=== PATIENT | male | born 1990 | race Caucasian/White ===

== ENCOUNTER 2018-07-07 19:19 | Emergency (ER) | payer OTHER, SELFPAY ==
[2018-07-07 19:23] VITALS: BP 125/79; PULSE 66; RESP 14; TEMP 36.5; O2SAT 99; BMI 28.8
[2018-07-07] MEDS: ONDANSETRON 4 MG/2 ML INJ IV (19:39)
[2018-07-07 20:01] LABS: INR 0.9 (0.9-1.3); Prothrombin Time 10.9 SECONDS (10.1-12.7)
[2018-07-07 20:04] LABS: PTT Partial Thromboplastin Tim 33 SECONDS (26.4-36.2)
[2018-07-07 20:05] LABS: Alanine Aminotransferase 64 IU/L (21-72); Albumin 4.8 g/dL (3.5-5.0); Albumin Globulin Ratio 1.5 (1.0-2.8); Alkaline Phosphatase 60 U/L (38-126); Aspartate Aminotransferase 50 IU/L (17-59); BUN Creatinine Ratio 13.3 (6-22); Bilirubin Total 0.7 mg/dL (0.2-1.3); Blood Urea Nitrogen 12 mg/dL (9-20); Calcium 9.7 mg/dL (8.4-10.2); Carbon Dioxide 26 mmol/L (22-32); Chloride 105 mmol/L (98-107); Estimated Glomerular Filt Rate > 60.0 mL/min (>60); Globulin 3.3 g/dL (1.7-4.1); Glucose 88 mg/dL (70-100); HEMOLYSIS 25 (0-50); Lipase 68 U/L (23-300); Potassium 3.9 mmol/L (3.4-5.1); Sodium 140 mmol/L (137-145); Total Protein 8.1 g/dL (6.3-8.2)
[2018-07-07 20:12] LABS: Add Manual Diff / Slide Review NO; Basophils Absolute Auto 0 /uL (0-100); Basophils Percent Auto 0.5 % (0-2); Eosinophils Absolute Auto 600 /uL (0-450); Eosinophils Percent Auto 9.8 % (2-4); Hematocrit 44.8 % (41-53); Hemoglobin 15.6 g/dL (13.5-17.5); Lymphocytes Absolute Auto 2000 /uL (1100-4500); Lymphocytes Percent Auto 30.1 % (25-40); Mean Corpuscular HGB Conc 34.8 % (30-36); Mean Corpuscular Hemoglobin 29.5 PG (26-34); Mean Corpuscular Volume 84.7 fL (80-100); Monocytes Absolute Auto 600 /uL (0-900); Monocytes Percent Auto 8.4 % (3-14); Neutrophils Absolute Auto 3400 /uL (1500-7000); Neutrophils Percent Auto 51.2 % (50-75); Platelet Count 216 X10^3/uL (150-400); Red Blood Cell Count 5.29 X10^6/uL (4.5-5.9); Red Cell Distribution Width 12.8 % (11.6-14.8); White Blood Cell Count 6.6 X10^3/uL (4.5-11.0)
[2018-07-07 20:38] VITALS: BP 121/79; PULSE 54; RESP 14; O2SAT 98
--- NOTE | 2018-07-07 21:10 | ED.ABDPAIN ---
HPI - Abdominal Pain General Chief Complaint: Abdominal Pain Stated Complaint: blood in stool, throwing up blood, light headed Time Seen by Provider: 07/07/18 21:09 Source: patient and old records reviewed Mode of arrival: ambulatory Limitations: no limitations History of Present Illness HPI narrative: patient is a 27-year-old male presenting with vomiting and diarrhea. He said that he has had multiple episodes of is black and bloody stools. He was seen and evaluated at [facility] at 2:00 a.m. this morning where he had blood work. And discharged home. He says that he has had a few episodes since then he now feels lightheaded. He still feels nauseated. Today he has only vomiting up food yesterday he said he vomited up bright red. He has had previous history of this due to NSAIDs. He says it was about 6 months ago he stop taking NSAIDs and has not had any problems. He does admit to drinking alcohol but he says not daily. He has no abdominal pain. He is not taking any omeprazole. Related Data Previous Rx's Medication Instructions Recorded omeprazole 40 mg PO BID #14 cap 07/07/18 ondansetron 4 mg PO Q6-8H PRN #10 tab 07/07/18 Allergies Allergy/AdvReac Type Severity Reaction Status Date / Time No Known Drug Allergies Allergy Verified 07/07/18 19:27 Review of Systems Review of Systems ROS Unobtainable: All systems reviewed & are unremarkable except as noted in HPI and below Constitutional Denies chills, Denies fever(s), Denies lethargy and Denies weakness Cardiovascular Denies chest pain, Denies irregular heart rhythm, Denies lightheadedness, Denies palpitations and Denies orthopnea Gastrointestinal Gastrointestinal: Reports as per HPI Musculoskeletal Denies back pain, Denies muscle weakness, Denies numbness and Denies tingling Integumentary/Breasts Denies pruritus, Denies erythema, Denies rash and Denies wounds Neurologic Denies numbness, Denies tingling and Denies weakness Endocrine Denies palpitations PFSH Medical History GI bleed (Acute) Social History Smoking Status: Never smoker Exam Initial Vital Signs Initial Vital Signs: Vital Signs Temperature 97.7 F 07/07/18 19:23 Pulse Rate 66 07/07/18 19:23 Respiratory Rate 14 07/07/18 19:23 Blood Pressure 125/79 07/07/18 19:23 Pulse Oximetry 99 07/07/18 19:23 GENERAL: Alert well-appearing young male no acute distress A& O x3 HEENT: Head atraumatic,EOMI, pupils reactive, CARDIOVASCULAR: Regular rate and rhythm without murmurs, rubs or gallops. RESPIRATORY: Breath sounds equal bilaterally, no wheezes rales or rhonchi. ABDOMEN: Soft, nontender. Normoactive bowel sounds all 4 quadrants. No guarding or rebound. EXTREMITIES: Normal range of motion, no clubbing or edema. Neurovascularly intact NEUROLOGICAL: Alert and oriented x4.Normal gait and speech. SKIN: Warm, dry, no laceration, no petechiae, no rashes or lesions. Course Orders Ordered: ED Orders 07/07/18 19:32 Complete Blood Count AUTO DIFF Stat Comprehensive Metabolic Panel Stat Lipase Stat Partial Thromboplastin Time Stat Prothrombin Time INR Stat Discontinued Medications Sodium Chloride (Normal Saline 0.9%) 1,000 mls @ 1,000 mls/hr IV BOLUS ONE Stop: 07/07/18 22:23 Last Infusion: 07/07/18 22:35 Dose: 0 mls/hr Admin: 07/07/18 21:29 Dose: 1,000 mls/hr Ondansetron HCl (Zofran) 4 mg IV NOW ONE Stop: 07/07/18 19:29 Last Admin: 07/07/18 19:39 Dose: 4 mg Ondansetron HCl (Zofran) 4 mg IV NOW ONE Stop: 07/07/18 21:25 Last Admin: 07/07/18 21:28 Dose: Not Given Pantoprazole Sodium (Protonix) 40 mg IV NOW ONE Stop: 07/07/18 21:25 Last Admin: 07/07/18 21:29 Dose: 40 mg Vital Signs - 8 hr 07/07/18 19:23 07/07/18 20:38 07/07/18 22:35 Temperature 97.7 F Pulse Rate 66 54 L 66 Respiratory Rate 14 14 16 Blood Pressure 125/79 135/75 Blood Pressure [Right Arm] 121/79 Pulse Oximetry 99 98 98 MDM - Abdominal Pain Lab Data Attestation: I reviewed the patient's lab results. Result diagrams: 07/07/18 19:32 07/07/18 19:32 Lab Results 07/07/18 07/07/18 07/07/18 Range/Units 19:32 19:32 19:32 WBC 6.6 (4.5-11.0) X10^3/uL RBC 5.29 (4.5-5.9) X10^6/uL Hgb 15.6 (13.5-17.5) g/dL Hct 44.8 (41-53) % MCV 84.7 (80-100) fL MCH 29.5 (26-34) PG MCHC 34.8 (30-36) % RDW 12.8 (11.6-14.8) % Plt Count 216 (150-400) X10^3/uL Neut % (Auto) 51.2 (50-75) % Lymph % (Auto) 30.1 (25-40) % [place] % (Auto) 8.4 (3-14) % Eos % (Auto) 9.8 H (2-4) % Baso % (Auto) 0.5 (0-2) % Neut # (Auto) 3400 (6791-6906) /uL Lymph # (Auto) 2000 (0350-1008) /uL [place] # (Auto) 600 (0-900) /uL Eos # (Auto) 600 H (0-450) /uL Baso # (Auto) 0 (0-100) /uL PT 10.9 (10.1-12.7) SECONDS INR 0.9 (0.9-1.3) APTT 33 (26.4-36.2) SECONDS Sodium 140 (137-145) mmol/L Potassium 3.9 (3.4-5.1) mmol/L Chloride 105 (98-107) mmol/L Carbon Dioxide 26 (22-32) mmol/L BUN 12 (9-20) mg/dL Creatinine 0.90 (0.66-1.25) mg/dL Estimated GFR > 60.0 (>60) mL/min BUN/Creatinine Ratio 13.3 (6-22) Glucose 88 (70-100) mg/dL Calcium 9.7 (8.4-10.2) mg/dL Total Bilirubin 0.7 (0.2-1.3) mg/dL AST 50 (17-59) IU/L ALT 64 (21-72) IU/L Alkaline Phosphatase 60 (38-126) U/L Total Protein 8.1 (6.3-8.2) g/dL Albumin 4.8 (3.5-5.0) g/dL Globulin 3.3 (1.7-4.1) g/dL Albumin/Globulin Ratio 1.5 (1.0-2.8) Lipase 68 (23-300) U/L Point of care testing: Urine Dip Bedside Urine Glucose Negative Bedside Urine Bilirubin - Negative Bedside Urine Ketone - Negative Urine Specific [place] 1.010 Bedside Urine Occult Blood - Negative Bedside Urine pH 6.5 Bedside Urine Protein - Negative Bedside Urine Urobilinogen - Negative Bedside Urine Nitrite - Negative Bedside Urine Leukocytes - Negative Esterase MDM Narrative Medical decision making narrative: the patient is hemodynamically stable no significant drop in hemoglobin or hematocrit. In fact his potassium has improved from Visit at [facility] earlier this morning. No active vomiting or diarrhea in the ED. He has not had any fever. no localization of abdominal pain at this time no need for imaging. Possible gastroenteritis, Supportive care only Discharge Plan Departure Patient Disposition: Home Clinical Impression: Acute GI bleeding Discharge Date/Time: 07/07/18 22:36 Interventions: ED Discharge Assessment Last Done: 07/07/18 22:35 Instructions: Gastrointestinal Bleeding Activity Restrictions/Additional Instructions: *You have been diagnosed with Gi Bleed *What to do: at this time blood work is stable. No indication for blood transfusion. you may require an EGD and colonoscopy please discuss this with her primary care provider. AVOID NSAIDS AND ALCOHOL *Continue to take medications as directed Zofran 4 mg every 6-8 hours if needed for nausea or vomiting omeprazole 40 mg twice a day on an empty stomach for 2 weeks *Follow up with your primary care provider in 2-3 days *Return to ER if you should have lightheadedness dizziness, increasing pain, persistent black stool or any new, worsening or concerning symptoms Prescriptions: New omeprazole 40 mg capsule,delayed release(DR/EC) 40 mg PO BID Qty: 14 RF: 0 ondansetron 4 mg tablet,disintegrating 4 mg PO Q6-8H PRN (Reason: nausea and vomiting) Qty: 10 RF: 0 Stand Alone Forms: Work Release Note
[2018-07-07] MEDS: PANTOPRAZOLE 40 MG VIAL IV (21:29)
[2018-07-07] MEDS: SODIUM CHLORIDE 0.9% 1,000 ML 1000 ML IV (21:29)
[2018-07-07 22:35] VITALS: BP 135/75; PULSE 66; RESP 16; O2SAT 98
== END 2018-07-07 22:36 | disposition home or self-care (01) ==
PROVIDERS: Emergency Provider Emergency Medicine
DX: K92.2 Gastrointestinal hemorrhage, unspecified (principal)
CPT/HCPCS: 36591; 80053; 81003; 83690; 85025; 85610; 85730; 96361; 96374; 96375; 99283; 99284; C9113; J2405